=== PATIENT | female | born 1955 | race African-American/Black ===

== ENCOUNTER → 2019-02-22 | Outpatient (CLI) | payer MEDICARE, OTHER ==
--- NOTE | 2019-02-22 17:45 | MRI ---
EXAM DESCRIPTION: Brain w/o Contrast: MRI. CLINICAL HISTORY: G43.019 COMPARISON: MRA of the brain on the same visit. TECHNIQUE: Multiplanar, high-field MRI unit, multiple diffusion sequences, multiple conventional sequences without contrast. FINDINGS: Normal FLAIR and T2-weighted signal in the periventricular white matter and suazo-white matter junctions of the cerebral hemispheres. . No hemorrhage, no cerebral edema, no mass-effect. No diffusion restriction. Normal signal in the bilateral basal ganglia. Normal signal in the brainstem and cerebellar hemispheres. No hemorrhage, no cerebral edema, no mass-effect. Concordance of the diffusion and non-diffusion sequences with no diffusion restriction. Cortical sulci, ventricles, and other CSF spaces, and the subdural spaces are normally configured for patients age. No effacement or displacement. No midline shift. No extra-axial hemorrhage. Normal flow signal void in the major vessels of the [place], and the venous sinuses. Please refer to the MRA study. IACs are symmetric bilaterally. Diffuse edema or fluid in the left mastoid air cells. No mass effect in the bilateral cerebellopontine angles. Pituitary gland occupies most of the sella. Base of the cerebellar tonsils is just above the foramen magnum. Minimal mucoperiosteal thickening in the paranasal sinuses.. The bony calvarium is intact. IMPRESSION: 1. No hemorrhage mass effect midline shift edema or diffusion restriction in the intra-axial brain. 2. Left mastoid sinusitis. Right mastoid air cells are unremarkable. No extra-axial hemorrhage or abnormal fluid. 3. Minimal chronic paranasal sinusitis. Electronically signed by: Luca Saldaña MD 02/22/2019 5:42 PM CDT
--- NOTE | 2019-02-23 12:10 | MRI ---
EXAM DESCRIPTION: MRA Head and/or Neck: CR/DR/XR. CLINICAL HISTORY: 63 years Female, MIGRAINE WITHOUT AURA COMPARISON: MRI scan of the brain without contrast on the same visit. TECHNIQUE: 3-D [id number] technique without IV contrast. 3 static plain images along with 3-D images rotating and, tumble axes. FINDINGS: The major vessels making up the [place] show no evidence of stenosis, aneurysm, mass effect, or vasculitis. Anterior and posterior circulations are well demonstrated. Distal vertebral arteries bilaterally are symmetric. Posterior communicating arteries are not seen bilaterally. No evidence of mass effect or vasculitis or lack of flow in the peripheral vessels. No abnormal vascular "flush" demonstrated. IMPRESSION: Noncontrast MRI of the brain is unremarkable. Electronically signed by: Luca Saldaña MD 02/23/2019 12:07 PM CDT
== END ==
LOC: MRI 10:14
PROVIDERS: ATTEND Emergency Medicine
DX: G43.019 Migraine without aura, intractable, without status migrainosus (principal); H74.8X2 Other specified disorders of left middle ear and mastoid; J32.9 Chronic sinusitis, unspecified

== ENCOUNTER → 2019-06-13 | Outpatient (CLI) | payer MEDICARE, OTHER ==
--- NOTE | 2019-06-14 08:31 | MRI ---
EXAM DESCRIPTION: Cervical Spine: MRI. CLINICAL HISTORY: 63 years Female RADICULOPATHY COMPARISON: MRA head and neck 02/22/2019. TECHNIQUE: Multiplanar, high-field MRI, multiple sequences, non-contrast Cervical spine. FINDINGS: C2-C3: Disc desiccation with disc space maintained. Tiny posterior midline bulge. Left uncinate spur and left hypertrophic facet arthrosis. Borderline mild left neural foraminal stenosis. Canal and right foramen patent. C3-C4: Disc desiccation and moderate disc space loss mostly posterior. Bilateral uncinate spurs larger on the right. Mild bilateral facet hypertrophic arthrosis. Moderate right neural foraminal stenosis and mild left neural foraminal stenosis. C4-C5: Partial osseous fusion posteriorly with disc space significantly decreased. Posterior disc space bony hypertrophy abutting the central cord with borderline central canal stenosis. Facet joints are also fused. Right posterior lateral spur with borderline right neural foraminal stenosis. Narrowing of the left neural foramen. C5-C6: Disc desiccation and moderate disc space loss. Anterior disc bulge with endplate ridging. Posterior disc osteophyte bulge abutting the cord. Moderate canal narrowing. Bilateral uncinate spurs and moderate left neural foraminal narrowing and right neural foraminal stenosis. Bilateral facet hypertrophic arthrosis. C6-C7: Marked disc space loss and circumferential endplate spurs. Posterior disc remnant with spur impressing on the cord with mild to moderate central canal stenosis. Bilateral uncinate spurs mild left hypertrophic facet arthrosis. Bilateral neural foraminal stenosis. C7-T1: Disc desiccation and moderate disc space loss. Schmorl's node inferior C7 endplate. Posterior midline disc bulge. Right uncinate spur and right facet arthrosis with moderate to severe neural foraminal narrowing. Moderate left neural foraminal narrowing. T1-T2: Trace anterolisthesis 1 mm. Disc space loss and minimal posterior disc bulge with desiccation. Moderate right neural foraminal narrowing and mild left neural foraminal narrowing. Spinal alignment reduced cervical lordosis.. No cord compression or cord edema. Atlantoaxial joint mild arthrosis.. Base of the cerebellar tonsils is above the foramen magnum. Paravertebral soft tissues show marked enlargement of both lobes of the thyroid gland and the isthmus extending down to the level of the thoracic inlet more on the left. Multiple indeterminate enlarged nodules right lobe and isthmus. Transverse thyroid is 6.3 cm Isthmus thickness 2.7 cm thick.. Vertebral bodies are not compressed at any level. Otherwise normal marrow signal in the remaining vertebral bodies and the posterior elements. IMPRESSION: 1. Multiple levels of cervical spondylosis, facet hypertrophic arthrosis, desiccated discs, loss of disc space, endplate and uncinate spurs. 2. C2-3 left uncinate spur and facet hypertrophy with mild left neural foraminal stenosis. 3. Partial osseous fusion posterior C4-5 disc space and facet joints. Hypertrophic changes at the posterior disc space are abutting the central cord with borderline central canal stenosis. Right posterior lateral endplate spur with borderline right neural foraminal stenosis. 4. Bilateral uncinate spurs at C3-4 and hypertrophic facets resulting in bilateral neural foraminal stenosis. 5. Bilateral uncinate spurs and hypertrophic facets, disc space loss and desiccation at C5-6 with right neural foraminal stenosis. 6. C6-C7 Disc desiccation and disc space loss and circumferential endplate spurs. Mild to moderate central canal stenosis and multifactorial bilateral neural foraminal stenosis. 7. Multiple incidental thyroid nodules. Enlarged heterogeneous thyroid gland. Recommend thyroid US. Reference: J Am Chary Radiol. 2015 Dec;12(2): 143-50 Electronically signed by: Luca Saldaña MD 06/14/2019 8:29 AM CDT
== END ==
LOC: MRI 11:17
PROVIDERS: ATTEND Emergency Medicine
DX: M47.22 Other spondylosis with radiculopathy, cervical region (principal); M50.122 Cervical disc disorder at C5-C6 level with radiculopathy; M46.02 Spinal enthesopathy, cervical region; M48.02 Spinal stenosis, cervical region; M43.22 Fusion of spine, cervical region

== ENCOUNTER → 2019-12-13 | Outpatient (CLI) | payer MEDICARE, OTHER ==
--- NOTE | 2019-12-14 06:54 | MRI ---
Study: MRI of the Left Shoulder. Indication: TEAR OF LEFT ROTATOR CUFF Technique: Multiplanar, multi sequence MRI of the left shoulder was obtained without intravenous contrast. Comparison: None. Findings: Unfortunately, examination is moderate to severely motion degraded. Mild AC joint osteoarthritis. Type I acromion. High-grade supraspinatus and infraspinatus tendinosis. Irregular intermediate grade interstitial tearing suspected throughout the conjoined tendon insertion which is filled with granulation tissue but difficult to characterize. No complete rupture. Subscapularis tendinosis. Teres minor tendon intact. Rotator cuff musculature normal without atrophy, fatty infiltration, or intramuscular edema. Long head biceps tendon grossly intact. Circumferential labral truncation and degeneration suspected. At least mild glenohumeral joint osteoarthritis. Multifocal subcortical cystic change of the greater tuberosity and lesser tuberosity. Impression: Moderate to severely motion degraded examination. Repeat examination highly recommended when the patient can tolerate. High-grade supraspinatus and infraspinatus tendinosis with suspected intermediate grade interstitial tearing of the conjoined tendon insertion but difficult to characterize. Subscapularis tendinosis. Circumferential labral truncation and degeneration. At least mild glenohumeral joint osteoarthritis. Mild AC joint osteoarthritis. 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
== END ==
LOC: MRI 10:00
PROVIDERS: ATTEND Emergency Medicine
DX: M75.102 Unspecified rotator cuff tear or rupture of left shoulder, not specified as traumatic (principal); S43.432A Superior glenoid labrum lesion of left shoulder, initial encounter; M75.92 Shoulder lesion, unspecified, left shoulder; M19.012 Primary osteoarthritis, left shoulder

== ENCOUNTER → 2020-03-13 | Outpatient (CLI) | payer MEDICARE, OTHER ==
--- NOTE | 2020-03-13 12:14 | US ---
US THYROID CLINICAL STATEMENT:64 years Female HYPOTHYROIDISM. COMPARISON: None TECHNIQUE: Transcutaneous scanning, grayscale and Doppler modes. FINDINGS: Size right thyroid lobe: 4.8 x 2.7 x 2.0 cm Size left thyroid lobe: 5.4 x 2.6 x 2.0 cm Size isthmus: 0.23 cm Estimated total number of nodules greater than or equal to 1 cm: 4 Nodule 1: Size: 2.3 x 2.2 x 2.1 cm Location: Left Lower Composition: solid or almost completely solid: 2 points Echogenicity: hypoechoic: 2 points Shape: taller than wide: 3 points Margins: smooth: 0 points Echogenic foci: none: 0 points ACR Total Points: >/= 7; ACR TI-RADS risk category: TR5 - highly suspicious nodule. Nodule 2: Size: 2.6 x 1.9 x 1.8 cm Location: Left Upper Composition: solid or almost completely solid: 2 points Echogenicity: hyperechoic: 1 point Shape: wider than tall: 0 points Margins: smooth: 0 points Echogenic foci: none: 0 points ACR Total Points: 3; ACR TI-RADS risk category: TR3 - mildly suspicious nodule. Nodule 3: Size: 2.1 x 1.7 x 1.4 cm Location: Isthmus Mid Composition: solid or almost completely solid: 2 points Echogenicity: hypoechoic: 2 points Shape: wider than tall: 0 points Margins: ill-defined: 0 points Echogenic foci: none: 0 points ACR Total Points: 4; ACR TI-RADS risk category: TR4 - moderately suspicious nodule. Nodule 4: Size: 2.4 x 1.9 x 2.0 cm Location: Right Mid Composition: solid or almost completely solid: 2 points Echogenicity: hyperechoic: 1 point Shape: wider than tall: 0 points Margins: smooth: 0 points Echogenic foci: none: 0 points ACR Total Points: 3; ACR TI-RADS risk category: TR3 - mildly suspicious nodule. No large solid mass, no distinct cyst, no large calcifications in the surrounding soft tissues. IMPRESSION: 1. Nodule 1: ACR TI-RADS 2017 Category TR5. Recommend: Ultrasound-guided fine needle aspiration. Recommendations based upon [facility] Best Practice recommendations and ACR TI-RADS 2017 guidelines. Please see below*. 2. Nodule 2: ACR TI-RADS 2017 Category TR3. Recommend: Follow-up ultrasound in 1 year. 3. Nodule 3: ACR TI-RADS 2017 Category TR4. Recommend: Ultrasound-guided fine needle aspiration 4. Nodule 4: ACR TI-RADS 2017 Category TR3. Recommend: Follow-up ultrasound in 1 year. Soft tissues around the thyroid gland is unremarkable. *ACR TI-RADS 2017 Recommendations for imaging follow-up of nodules: TR1: No FNA or follow up TR2: No FNA or follow up TR3: FNA if >/= 2.5 cm, follow up if 1.5 - 2.4 cm in 1, 3, and 5 years TR4: FNA if >/= 1.5 cm, follow up if 1.0 - 1.4 cm in 1, 2, 3, and 5 years TR5: FNA if >/= 1.0 cm, follow up if 0.5 - 0.9 cm every year for 5 years ACR TI-RADS recommends that no more than two nodules with the highest ACR TI-RADS total point should be biopsied and no more than four nodules should be followed. These recommendations do not apply to patients with increased risk for thyroid cancer or patients with symptomatic thyroid disease. Electronically signed by: Luca Saldaña MD 03/13/2020 12:13 PM CDT
== END ==
LOC: US 10:10
PROVIDERS: ATTEND Emergency Medicine
DX: E03.9 Hypothyroidism, unspecified (principal); E04.2 Nontoxic multinodular goiter